=== PATIENT | male | born 1965 | race Caucasian/White ===

== ENCOUNTER 2024-04-07 01:21 | Day surgery (SDC) | payer BC, SELFPAY ==
[2024-03-30 09:28] VITALS: BMI 27.4
[2024-04-07 09:21] VITALS: BP 114/62; PULSE 80; RESP 18; TEMP 36.8; O2SAT 96
--- NOTE | 2024-04-07 09:31 | WPDANESEPPF ---
Anes - Initial Pre Proc Eval Procedure: Operation Date: 04/07/24 11:00 Proposed Procedures p Screening Colonoscopy - Negro Richardson MD Date/Time: 04/07/24 09:31 Surgeon: Negro Richardson MD Pre Op Diagnosis: family hx malignant neoplasm digestive organs Patient Data Age: 59 Gender: M Height: 1.73 m Weight: 79.7 kg Last Vital Signs Temp 36.8 C 04/07/24 09:21 Pulse 80 04/07/24 09:21 Resp 18 04/07/24 09:21 BP 114/62 04/07/24 09:21 Pulse Ox 96 04/07/24 09:21 O2 Del Method Room Air 04/07/24 09:21 Allergies Allergy/AdvReac Type Severity Reaction Status Date / Time No Known Allergies Allergy Verified 04/07/24 09:18 Home Medications ?Medication ?Instructions ?Recorded ?Confirmed ?Type magnesium 200 mg tablet 200 mg PO DAILY 10/29/23 03/30/24 History turmeric 400 mg capsule 400 mg PO DAILY 10/29/23 03/30/24 History levothyroxine 150 mcg tablet 150 mcg PO DAILY #90 tabs 01/03/24 04/07/24 Rx Patient hx anesthesia problems: none Family hx anesthesia problems: none Results Review: All pre-operative results and documents have been reviewed as part of the pre-operative evaluation. [facility] Past Medical History Medical History (Updated 04/07/24 @ 09:32 by Jace Frazier DO) Hypothyroidism, unspecified Family History Family History (Updated 12/15/21 @ 15:55 by Marbin Asif MA) Father Colon cancer Mother Breast cancer Hyperthyroidism Social History Social History (Updated 10/29/23 @ 08:45 by Candi Martin CMA) Smoking status: Never smoker Alcohol intake: current Drinks per week: 6 Alcohol use details: BEERS Substance use: never Substance use type: does not use Do You Feel Safe in your Home?: Yes Lack of Transportation: No Lack of Food: Never True Current Housing: I Do Not Have Housing Concerned About Future Housing: No Difficulty Paying Gas/Electric Bills: No Difficulty Paying for Meds: No Currently Unemployed: No Education: Associate Degree Difficulty w/ Childcare or Family Care: No Living arrangements: with family Spiritual care concerns: No Anes - Eval Final PreProcedure Day of Procedure 04/07/24 09:31 Patient weight: overweight Heart: regular rate and rhythm Lungs: clear to auscultation Airway: Mallampati scale class II Neurological: alert and oriented Last oral intake: >/= 8 hours ASA classification: II Emergent: no Anesthetic plan: proceed Anesthesia type and monitoring: general GIVS and standard monitoring Results Review: All pre-operative results and documents have been reviewed as part of the pre-operative evaluation. Informed Consent: The patient's anesthetic plan and its attendant risks and benefits were discussed with the patient/family/POA. Questions were solicited and answers provided to the satisfaction of the patient/family/POA.
--- NOTE | 2024-04-07 09:56 | PM.HPGS ---
History of Present Illness History of Present Illness Consent: Risks, benefits, and alternatives have been discussed and questions answered. Patient agrees to proceed with procedure. Chief complaint: family hx malignant neoplasm digestive organs Narrative: Michael Cortez is a 59 year old male with last colonoscopy ~ 6-7 years ago, father had colon cancer Review of Systems Review of Systems: All systems reviewed & are unremarkable except as noted in HPI and below PMFSH Past Medical History Medical History (Updated 04/07/24 @ 09:57 by Negro Richardson MD) Family history of colon cancer in father Hypothyroidism, unspecified Family History Family History (Updated 12/15/21 @ 15:55 by Marbin Asif MA) Father Colon cancer Mother Breast cancer Hyperthyroidism Social History Social History (Updated 10/29/23 @ 08:45 by Candi Martin CMA) Smoking status: Never smoker Alcohol intake: current Drinks per week: 6 Alcohol use details: BEERS Substance use: never Substance use type: does not use Do You Feel Safe in your Home?: Yes Lack of Transportation: No Lack of Food: Never True Current Housing: I Do Not Have Housing Concerned About Future Housing: No Difficulty Paying Gas/Electric Bills: No Difficulty Paying for Meds: No Currently Unemployed: No Education: Associate Degree Difficulty w/ Childcare or Family Care: No Living arrangements: with family Spiritual care concerns: No Meds Home Medications and Allergies Home Medications ?Medication ?Instructions ?Recorded ?Confirmed ?Type magnesium 200 mg tablet 200 mg PO DAILY 10/29/23 03/30/24 History turmeric 400 mg capsule 400 mg PO DAILY 10/29/23 03/30/24 History levothyroxine 150 mcg tablet 150 mcg PO DAILY #90 tabs 01/03/24 04/07/24 Rx Allergies Allergy/AdvReac Type Severity Reaction Status Date / Time No Known Allergies Allergy Verified 04/07/24 09:18 Vital Signs Vital Signs - 24 hr 04/07/24 09:21 Temperature 98.2 F Pulse Rate 80 Respiratory Rate 18 Blood Pressure 114/62 Pulse Oximetry 96 Oxygen Delivery Room Air Exam Const: General: comfortable and no acute distress HENMT: Face/Nose/Sinus: Normal nares present Eyes: General: appearance normal, both eyes and all related structures Neck: Neck: no JVD Resp: Auscultation: clear to auscultation bilaterally Cardio: Rate: regular rate Rhythm: regular rhythm GI: Inspection: non-distended GI Palp: Yes Soft to palpation Skin: General skin exam: normal color Neuro: General: gait normal Speech: normal speech Extrem: General: normal to inspection Psych: Mental Status: mental status grossly normal Assessment and Plan Assessment and plan (1) Family history of colon cancer in father: Code(s): Z80.0 - Family history of malignant neoplasm of digestive organs Status: Acute Assessment and Plan: colonoscopy
[2024-04-07] MEDS: LACTATED RINGERS 1,000 ML 150 ML IV CONT (09:58)
[2024-04-07 10:14] VITALS: BP 105/68; PULSE 60; RESP 15; O2SAT 97
[2024-04-07 10:24] VITALS: BP 101/64; PULSE 55; RESP 17; O2SAT 98
[2024-04-07 10:34] VITALS: BP 110/77; PULSE 59; RESP 17; O2SAT 98
== END 2024-04-07 10:50 | disposition home or self-care (01) ==
PROVIDERS: PCP Family Medicine Adolescent Medicine; Visit Provider Internal Medicine Gastroenterology
PROC: 0DJD8ZZ Inspection of Lower Intestinal Tract, Via Natural or Artificial Opening Endoscopic (ICD-10-PCS; CPT 45378; principal; 2024-04-07 11:00)
DX: Z12.11 Encounter for screening for malignant neoplasm of colon (principal); K64.8 Other hemorrhoids; E03.9 Hypothyroidism, unspecified; Z80.3 Family history of malignant neoplasm of breast; Z80.0 Family history of malignant neoplasm of digestive organs
CPT/HCPCS: 45378; J2003; J2704; J7120